=== PATIENT | female | born 1980 | race Caucasian/White ===

== ENCOUNTER → 2022-02-08 | Outpatient (REF) | payer OTHER ==
[2022-02-08 17:15] LABS: URINE PREG TEST NEGATIVE (NEGATIVE)
== END ==
LOC: M LAB REF 16:21
PROVIDERS: ATTEND Physician Assistant
DX: R10.2 Pelvic and perineal pain (principal)

== ENCOUNTER → 2022-02-08 | Outpatient (CLI) | payer OTHER | LOC: M RAD 14:52 | PROVIDERS: ATTEND Physician Assistant | DX: R10.2 Pelvic and perineal pain (principal) ==